=== PATIENT | male | born 1980 | race Caucasian/White ===

== ENCOUNTER 2017-07-27 18:35 | Emergency (ER) | payer OTHER ==
[~2017-07-27] VITALS: Ht 195.6 cm; Wt 114.3 kg
--- NOTE | 2017-07-27 18:44 | ED.ADGEN ---
Past History Past Medical History: No Pertinent History, DVT, Other Past Surgical History: No Surgical History Alcohol Use: Occasionally Drug Use: None Adult General Chief Complaint Chief Complaint " I am worried .. I have a DVT again.; in this Rt. leg.. 1 st one was in 2011. .thought it came on [place].. I got 6 months of meds.. .. but it feels like it did before in this right leg.. My dad had them too..." HPI HPI Patient is a 37 year old male who presents with above hx and complaints. Patient had an extensive DVT from his right groin to his foot. 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 Patient currently complaining of some edema in right leg and tenderness. No specific cording noted. No adenopathy noted. No history of trauma. No history of travel. No history of dyspnea. Patient follows at [facility]. He had has never completed workup for his possible clotting disorder such as factor V, Leiden, antiphospholipid, rheumatoid etc. Review of Systems Review of Systems Constitutional: Denies fever or chills [] Eyes: Denies change in visual acuity, redness, or eye pain [] HENT: Denies nasal congestion or sore throat [] Respiratory: Denies cough or shortness of breath [] Cardiovascular: No additional information not addressed in HPI [] GI: Denies abdominal pain, nausea, vomiting, bloody stools or diarrhea [] : Denies dysuria or hematuria [] Musculoskeletal: Denies back pain or joint pain []complaints of right leg pain Integument: Denies rash or skin lesions [] Neurologic: Denies headache, focal weakness or sensory changes [] Endocrine: Denies polyuria or polydipsia [] Family History Family History Father has had DVTs Current Medications Current Medications Current Medications Medications (Trade) Dose Ordered Sig/Suzanna Start Time Stop Time Status Last Admin Dose Admin Aspirin (Children'S Aspirin) 324 mg 1X ONCE 07/27/17 20:00 07/27/17 20:01 DC 07/27/17 20:33 324 MG Enoxaparin Sodium (Lovenox 150mg Syringe) 120 mg 1X ONCE 07/27/17 20:00 07/27/17 20:01 DC Info (Do NOT chart on this entry -- for MONITORING) 1 each PRN DAILY PRN 07/27/17 20:00 07/27/17 23:41 DC Iohexol (Omnipaque 300 Mg/ml) 75 ml 1X ONCE 07/27/17 20:00 07/27/17 20:01 DC Sodium Chloride 1,000 ml @ 100 mls/hr Q10H 07/27/17 19:51 07/27/17 23:41 DC 07/27/17 20:32 100 MLS/HR See nursing for home meds Allergies Allergies Allergies Coded Allergies Type Severity Reaction Last Updated Verified No Known Drug Allergies 07/27/17 No Physical Exam Physical Exam Constitutional: Well developed, well nourished, mild distress, non-toxic appearance. [] HENT: Normocephalic, atraumatic, bilateral external ears normal, oropharynx moist, no oral exudates, nose normal. [] Eyes: PERRLA, EOMI, conjunctiva normal, no discharge. [] Neck: Normal range of motion, no tenderness, supple, no stridor. [] Cardiovascular:Heart rate regular rhythm, no murmur [] Lungs & Thorax: Bilateral breath sounds equal at apexes with scattered wheezes on auscultation [] Abdomen: Bowel sounds normal, soft, no tenderness, no masses, no pulsatile masses. [] Skin: Warm, dry, no erythema, no rash. [] Back: No tenderness, no CVA tenderness. [] Extremities: No tenderness, no cyanosis, no clubbing, ROM intact, right leg edema and discomfort. No cording appreciated Neurologic: Alert and oriented X 3, normal motor function, normal sensory function, no focal deficits noted. [] Psychologic: Affect normal, judgement normal, mood normal. [] Current Patient Data Lab Results Laboratory Tests Test 07/27/17 20:21 07/27/17 20:26 07/27/17 20:27 White Blood Count 6.3 x10^3/uL (4.0-11.0) Red Blood Count 5.03 x10^6/uL (4.30-5.70) Hemoglobin 15.1 g/dL (13.0-17.5) Hematocrit 43.4 % (39.0-53.0) Mean Corpuscular Volume 86 fL (79-100) Mean Corpuscular Hemoglobin 30 pg (25-35) Mean Corpuscular Hemoglobin Concent 35 g/dL (31-37) Red Cell Distribution Width 13.7 % (11.5-14.5) Platelet Count 168 x10^3/uL (140-400) Neutrophils (%) (Auto) 68 % (31-73) Lymphocytes (%) (Auto) 24 % (24-48) Monocytes (%) (Auto) 7 % (0-9) Eosinophils (%) (Auto) 1 % (0-3) Basophils (%) (Auto) 1 % (0-3) Neutrophils # (Auto) 4.3 x10^3uL (1.8-7.7) Lymphocytes # (Auto) 1.5 x10^3/uL (1.0-4.8) Monocytes # (Auto) 0.4 x10^3/uL (0.0-1.1) Eosinophils # (Auto) 0.1 x10^3/uL (0.0-0.7) Basophils # (Auto) 0.0 x10^3/uL (0.0-0.2) Prothrombin Time 11.0 SEC (9.4-11.4) Prothrombin Time INR 1.1 (0.9-1.1) PTT 24 SEC (23-33) D-Dimer (Alisha) < 0.19 mg/L (0.00-0.50) Sodium Level 138 mmol/L (136-145) Potassium Level 3.7 mmol/L (3.5-5.1) Chloride Level 102 mmol/L (98-107) Carbon Dioxide Level 30 mmol/L (21-32) Anion Gap 6 (6-14) 17 mmol/L (6-14) H Blood Urea Nitrogen 20 mg/dL (8-26) Creatinine 1.4 mg/dL (0.7-1.3) H Estimated GFR (Cockcroft-Gault) 57.0 BUN/Creatinine Ratio 14 (6-20) Glucose Level 94 mg/dL (70-99) 93 mg/dL (60-99) Calcium Level 9.3 mg/dL (8.5-10.1) Magnesium Level 2.1 mg/dL (1.8-2.4) Total Bilirubin 0.6 mg/dL (0.2-1.0) Aspartate Amino Transferase (AST) 28 U/L (15-37) Alanine Aminotransferase (ALT) 27 U/L (16-63) Alkaline Phosphatase 98 U/L (46-116) Creatine Kinase 438 U/L (39-308) H Troponin I Quantitative < 0.017 ng/mL (0-0.055) MK-Rzj-X-Type Natriuretic Peptide 87 pg/mL (0-124) Total Protein 7.6 g/dL (6.4-8.2) Albumin 4.4 g/dL (3.4-5.0) Albumin/Globulin Ratio 1.4 (1.0-1.7) Urine Collection Type Unknown Urine Color Yellow Urine Clarity Clear Urine pH 5.5 Urine Specific Omar <=1.005 Urine Protein Neg (NEG-TRACE) Urine Glucose (UA) Neg mg/dL (NEG) Urine Ketones (Stick) Neg mg/dL (NEG) Urine Blood Trace (NEG) Urine Nitrite Neg (NEG) Urine Bilirubin Neg (NEG) Urine Urobilinogen Dipstick 0.2 mg/dL (0.2 mg/dL) Urine Leukocyte Esterase Neg (NEG) Urine RBC 0 /HPF (0-2) Urine WBC 0 /HPF (0-4) Urine Squamous Epithelial Cells None /LPF Urine Bacteria 0 /HPF (0-FEW) POC Hemoglobin 15.0 gm/dL POC Hematocrit 44 % POC Sodium 141 mmol/L (135-145) POC Potassium 3.6 mmol/L (3.5-5.0) POC Chloride 100 mmol/L (98-110) POC Total CO2 28 mmol/L (23-32) POC Blood Urea Nitrogen 20 mg/dL (8-26) POC Creatinine 1.4 mg/dL (0.5-1.4) POC Ionized Calcium (Karlos) 1.20 mmol/L (1.13-1.32) EKG EKG [] Radiology/Procedures Radiology/Procedures [] Impressions: Ultrasound leg Rt- shows no DVT Course & Med Decision Making Course & Med Decision Making Pertinent Labs and Imaging studies reviewed. (See chart for details) Recommended patient take a daily aspirin or baby aspirin if on any long drives or flights. . Patient take [id number] Tylenol and ibuprofen as needed for discomfort. Patient follow-up primary care. Patient return of any concerns. [] Final Impression Final Impression 1. Right leg pain 2. History of DVT[] Problems: Dragon Disclaimer Dragon Disclaimer This electronic medical record was generated, in whole or in part, using a voice recognition dictation system. RIP TIMMONS MD Jul 27, 2017 18:44
[2017-07-27] MEDS ORDERED: IV NORMAL SALINE 1,000ML 1,000 ML IV SCH (19:51)
[2017-07-27] MEDS ORDERED: CONTRAST GIVEN MC PRN (20:00)
[2017-07-27] MEDS ORDERED: ASPIRIN 81 MG TAB.CHEW PO ONE (20:00)
[2017-07-27] MEDS ORDERED: ENOXAPARIN ** NOTE DOSE ** SYRINGE SQ ONE (20:00)
[2017-07-27] MEDS ORDERED: IOHEXOL 300 MG/ML 75 ML VIAL. IV ONE (20:00)
[2017-07-27 20:42] LABS: POTASSIUM ISTAT 3.6 mmol/L (3.5-5.0)
[2017-07-27 20:45] LABS: BASO % 1 % (0-3); EOS # 0.1 x10^3/uL (0.0-0.7); EOS % 1 % (0-3); HEMATOCRIT 43.4 % (39.0-53.0); HEMOGLOBIN 15.1 g/dL (13.0-17.5); LYMPH # 1.5 x10^3/uL (1.0-4.8); LYMPH % 24 % (24-48); MEAN CORPUSCULAR HEMOGLOBIN 30 pg (25-35); MEAN CORPUSCULAR HGB CONC 35 g/dL (31-37); MEAN CORPUSCULAR VOLUME 86 fL (79-100); MONO # 0.4 x10^3/uL (0.0-1.1); MONO % 7 % (0-9); NEUT # 4.3 x10^3uL (1.8-7.7); NEUT % 68 % (31-73); PLATELET COUNT 168 x10^3/uL (140-400); RED BLOOD COUNT 5.03 x10^6/uL (4.30-5.70); RED CELL DISTRIBUTION WIDTH 13.7 % (11.5-14.5); WHITE BLOOD COUNT 6.3 x10^3/uL (4.0-11.0)
[2017-07-27 21:00] LABS: ALBUMIN 4.4 g/dL (3.4-5.0); ALBUMIN/GLOBULIN RATIO 1.4 (1.0-1.7); CALCIUM 9.3 mg/dL (8.5-10.1); CREATININE 1.4 mg/dL (0.7-1.3); MAGNESIUM 2.1 mg/dL (1.8-2.4); POTASSIUM 3.7 mmol/L (3.5-5.1); TOTAL BILIRUBIN 0.6 mg/dL (0.2-1.0); TOTAL PROTEIN 7.6 g/dL (6.4-8.2)
[2017-07-27 21:39] LABS: BILIRUBIN,URINE NEG (NEG); CLARITY,URINE CLEAR; COLOR,URINE YELLOW; GLUCOSE,URINE NEG (NEG); NITRITE,URINE NEG (NEG); UROBILINOGEN,URINE 0.2 mg/dL (0.2 mg/dL)
[2017-07-27 21:40] LABS: BACTERIA,URINE 0 /HPF (0-FEW); RBC,URINE 0 /HPF (0-2); WBC,URINE 0 /HPF (0-4)
--- NOTE | 2017-07-27 23:06 | RAD ---
Right lower extremity venous Doppler dated 07/27/2017. No comparison available. CLINICAL INDICATION: Right leg pain. History of DVT. FINDINGS: Grayscale, color-flow and spectral waveform analysis performed to include the deep venous system of the right lower extremity. Normal compressibility, phasicity and augmentation of flow throughout. No filling defects are seen. IMPRESSION: No evidence of right lower extremity deep vein thrombosis. Electronically signed by: Shar Lopez MD (07/27/2017 11:02 PM) [facility]
[2017-07-27 23:11] VITALS: BP 120/74
--- NOTE | 2017-07-28 06:03 | EKG ---
[address] [id number] Test Date: 2017-07-27 Test Time: 20:02:46 Pat Name: ROSANNA ESPINOZA Department: Room: Gender: M [employer] Instructor: LORI : 1980 Requested By: RIP TIMMONS Order Number: [id number] Reading MD: Measurements Intervals [place] Rate: 69 P: 44 [place]: 154 QRS: 79 QRSD: 96 T: 13 QT: 402 QTc: 437 Interpretive Statements SINUS RHYTHM NO SPECIFIC ECG ABNORMALITIES RI6.01 No previous ECG available for comparison
== END 2017-07-27 23:40 | disposition home or self-care (01) ==
LOC: ER 18:35
DX: M79.604 Pain in right leg (principal); Z86.718 Personal history of other venous thrombosis and embolism
CPT/HCPCS: 36415; 80047; 80053; 81001; 82550; 83735; 83880; 84443; 84484; 85025; 85379; 85610; 85730; 93005; 93971; 96360; 96361; 99285-25; J7030